=== PATIENT | female | born 1985 | race Caucasian/White ===

== ENCOUNTER 2017-12-06 16:15 | Inpatient (IN) | payer OTHER ==
[~2017-12-06] VITALS: Ht 162.6 cm; Wt 81.6 kg
[2017-12-11] MEDS ORDERED: FAMOTIDINE(*) 20MG/50ML PREMIX 50 ML IVPB PRN (19:42)
[2017-12-11] MEDS ORDERED: LIDOCAINE/SOD BICARB 8.4% SYR SC PRN (19:45)
[2017-12-11] MEDS ORDERED: TERBUTALINE SULF 1 MG/ML VIAL SUBQ PRN (19:45)
[2017-12-11] MEDS ORDERED: METOCLOPRAMIDE 10 MG/2 ML SDV IVP PRN (19:45)
[2017-12-11] MEDS ORDERED: LIDOCAINE 1% LOCAL 300 MG/30ML INJ PRN (19:45)
[2017-12-11] MEDS ORDERED: fentaNYL CITR 100 MCG/2 ML AMP IVP PRN (19:45)
[2017-12-11] MEDS ORDERED: FLUSH 10 ML SYR IVP PRN (19:45)
[2017-12-11 20:00] VITALS: BP 122/63; Ht 162.6 cm; Wt 81.6 kg
[2017-12-11] MEDS ORDERED: CALC500T6 PO (20:08)
[2017-12-11] MEDS ORDERED: PREN-127 PO (20:08)
[2017-12-11] MEDS ORDERED: GLUC-198 PO (20:08)
[2017-12-11] MEDS ORDERED: OMEG-11 PO (20:08)
[2017-12-11 20:41] LABS: PLATELET COUNT, AUTOMATED 136 K/uL (150-450)
[2017-12-11] MEDS ORDERED: DINOPROSTONE 10 MG INSERT PV ONE ×2 (20:45→20:46)
[2017-12-11] MEDS: LR(*) 1000 ML BAG 1,000 ML IV PRN (20:49)
[2017-12-11] MEDS ORDERED: CALCIUM CARBONATE 500 MG CHEW PO PRN (21:00)
[2017-12-11] MEDS ORDERED: ONDANSETRON 4 MG/2 ML VIAL IVP PRN (21:00)
[2017-12-11] MEDS ORDERED: BUPIVACAINE 0.25% MPF INJ EPI PRN (21:35)
[2017-12-11] MEDS ORDERED: LIDO/EPI 2% MPF 1:200,000 20ML EPI PRN (21:35)
[2017-12-11] MEDS ORDERED: BUPIVACAINE 0.5% INJ 30ML VIAL EPI PRN (21:35)
[2017-12-11] MEDS ORDERED: fentaNYL CITR 100 MCG/2 ML AMP IT PRN (21:35)
[2017-12-11] MEDS ORDERED: FENTANYL/ROPIVACAINE 100 ML BAG EPI PRN (21:35)
[2017-12-11] MEDS ORDERED: LIDOCAINE/PF 2% 200MG/10ML AMP 200 MG/10 ML AMPUL EPI PRN (21:35)
[2017-12-11] MEDS ORDERED: ACETAMINOPHEN 500 MG TAB PO PRN (21:40)
[2017-12-12] MEDS ORDERED: EPIDURAL KEYS XX PRN
[2017-12-12] MEDS: LR(*) 1000 ML BAG 1,000 ML IV PRN ×3 (13:00→22:55)
[2017-12-12] MEDS: OXYTOCIN 30 UNIT/D5LR 500 ML 500 ML IV PRN (13:00)
--- NOTE | 2017-12-12 13:08 | Labor Progress Note ---
Labor Subjective Progress Notes Subjective has not developed much pain yet although contractions increasing. Epidural catheter placed to be dosed as needed for pain. Feeling Movement?: Yes Vaginal Discharge/Fluid: Bloody Show Labor Pain: Mild Labor Objective Vital Signs Vital Signs Date Time Temp Pulse Resp B/P (MAP) Pulse Ox O2 Delivery O2 Flow Rate FiO2 12/11/17 20:00 98.5 68 18 122/63 (82) 94 Room Air Vaginal Discharge/Fluid?: Bloody Show, Clear Fluid (amniotomy) Cervical Dialation: 3.5 Cervical Effacement (%): 75 Cervical Consistency: Soft Presentation: Vertex Uterine Contractions(Q min): 3 Uterine Contraction Strength: Moderate Fetus Heart Tone Variabilty: Moderate FHT Accelerations: Present, 15X15 FHT Category: I General Exam Abdomen: Soft, Non-Tender, Non-Distended Psychological: Alert & Oriented X3, Appropriate Mood & Affect Other Result Diagram: 12/11/172028 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 Expecting as moves into active phase of labor. JOHNATHON CONSTANTINO MD Dec 12, 2017 13:08
--- NOTE | 2017-12-12 13:13 | History & Physical ---
History of Present Illness Age of Patient: 32 : 1 Para or TPAL: 0 EDC per LMP: Dec 06, 2017 Estimated Gestational Age: 40 Chief Complaint IOL History of Present Illness Presented for scheduled and elective IOL at term, post dates. No problems currently. History of LEEP but no significant scarring detected. Past Medical, Surgical, Family and Obstetric Histories reviewed. Please see ACOG chart. History Allergies: Coded Allergies: No Known Drug Allergies (Unverified , 12/11/17) Med Rec Home Meds Reported Medications Calcium Carbonate (CALCIUM) 500 Mg Tablet, 500 MG PO 12/11/17 Glucosa Garcia 2KCL/Chondroitin Garcia (GLUCOSAMINE & CHONDROITIN CAP) 1 Each Capsule, 1 EACH PO, CAPSULE 12/11/17 [place]-3 Fatty Acids/Fish Oil (FISH OIL 1,000 MG CAPSULE) 1 Each Capsule, 1 EACH PO, CAPSULE 12/11/17 Vits W-Ca,Fe,Fa(<1MG) ( VITAMINS) 1 Each Tablet, 1 EACH PO DAILY, TAB 12/11/17 Review of Systems All Systems Reviewed/Normal: Yes, Except as Noted Exam General Exam Vital Signs Vital Signs Date Time Temp Pulse Resp B/P (MAP) Pulse Ox O2 Delivery O2 Flow Rate FiO2 12/11/17 20:00 98.5 68 18 122/63 (82) 94 Room Air General Apperance: Alert/Awake/No Acute Distress Neuro: No Gross deficits Cardiovascular: Regular Rate and Rhythm Respiratory: No Respiratory Distress Abdomen: Soft, Non-Tender, Non-Distended, Gravid - Non-Tender Integumentary: Skin Intact without Lesions or Rash Psychological: Alert & Oriented X3, Appropriate Mood & Affect Cervical Dialation: 2 Cervical Effacement (%): 75 Cervical Consistency: Firm Station: -2 Presentation: Vertex Fetus Heart Tone Variabilty: Moderate FHT Accelerations: 15X15 FHT Category: I Medical Decision Making Data Points Result Diagram: 12/11/172028 VTE Prophylasis: Adult Deep Vein Thrombosis/Pulmonary: No Pharmacological Contraindicati: Pt at Low Risk for VTE Mechanical Contraindications: Pt at Low Risk for VTE 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 AROM done with clear fluid. Expecting her to move into active labor. JOHNATHON CONSTANTINO MD Dec 12, 2017 13:13
--- NOTE | 2017-12-12 18:55 | Labor Progress Note ---
Labor Subjective Progress Notes Subjective Comfortable with epidural, pa catheter in place. Pitocin has been adjusted to keep a regular labor pattern and is currently at 20 mu/min. Vaginal Discharge/Fluid: Bloody Show Labor Pain: Comfortable (epidural) Labor Objective Vital Signs Vital Signs Date Time Temp Pulse Resp B/P (MAP) Pulse Ox O2 Delivery O2 Flow Rate FiO2 12/11/17 20:00 98.5 68 18 122/63 (82) 94 Room Air Vaginal Discharge/Fluid?: Bloody Show Cervical Dialation: 4 Cervical Effacement (%): 90 Cervical Consistency: Soft Cervical Position: Anterior Station: -1 Presentation: Vertex Uterine Contractions(Q min): 2.5 Uterine Contraction Strength: Strong Fetus Heart Tone Variabilty: Moderate FHT Accelerations: 15X15 FHT Decelerations: Early FHT Category: I General Exam General Appearance: Alert/Awake/No Acute Distress Psychological: Alert & Oriented X3, Appropriate Mood & Affect Other Result Diagram: 12/11/172028 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 Her cervix feels like it has changed albeit slowly. Recommended more time to get to active phase. Reviewed briefly reasons for ar rest of progress or descent. JOHNATHON CONSTANTINO MD Dec 12, 2017 18:55
[2017-12-12] MEDS ORDERED: DLR(*) 1000 ML BAG 1,000 ML IV ONE (22:53)
[2017-12-12] MEDS: DLR(*) 1000 ML BAG 1,000 ML IV SCH (22:55)
--- NOTE | 2017-12-12 23:48 | Labor Progress Note ---
Labor Subjective Progress Notes Subjective Labor was stalled from 3.5 cm to 5 cm during this afternoon and evening. IUPC placed at 1830 to help document adequate contractions. Adequacy has been present off and on requiring adjustments in Pitocin but overall, we have been over 200 MVUs. Periods of minimal variability with early decelerations noted but excellent response to scalp stimulation. Currently category 1 strip. Vaginal Discharge/Fluid: Bloody Show Labor Pain: Comfortable Labor Objective Vital Signs Vital Signs Date Time Temp Pulse Resp B/P (MAP) Pulse Ox O2 Delivery O2 Flow Rate FiO2 12/11/17 20:00 98.5 68 18 122/63 (82) 94 Room Air Cervical Dialation: 7 Cervical Effacement (%): 100 Cervical Consistency: Soft Cervical Position: Anterior Station: 0 Presentation: Vertex Fetus Heart Tone Variabilty: Moderate FHT Accelerations: 15X15 FHT Decelerations: Early FHT Category: I Other Result Diagram: 12/11/172028 Assessment and Plan Problems: (1) 40 weeks gestation of Assessment & Plan: Continue current course with Pitocin stimulation of labor and planning still. Monitor temperature and contraction frequency. Expecting . JOHNATHON CONSTANTINO MD Dec 12, 2017 23:48
[2017-12-12] MEDS ORDERED: ACETAMINOPHEN 500 MG TAB PO ONE (23:50)
[2017-12-13] MEDS ORDERED: METHYLERGONOVINE MAL 0.2MG/ML ONE (03:16)
[2017-12-13] MEDS ORDERED: CARBOPROST TROMETHAM 250MCG/ML IM ONLY ONE (03:16)
--- NOTE | 2017-12-13 06:09 | OB Delivery Note ---
Delivery Note Vaginal Delivery Type: Spont. Vaginal Delivery Delivery Date: Dec 13, 2017 Delivery Time: 05:47 Estimated Gestational Age(wks): 41.0 Delivery Anesthesia: Epidural Sex: Male Apgars: 1 Minute (8), 5 Minute (9) Repair Needed: Laceration, 1st Degree Estimated Blood Loss: 300 Notes: Presented for Cervidil induction yesterday at 2 cm dilation. Progressed to 3 cm overnight. Very slow progress to 4 cm by 1843 and IUPC placed at that time. Further adjustment to Pitocin made and progress to 5 cm by 9. 7 cm by 8 and completely dilated at 0402. Allowed to labor down for an hour and pushing effectively, brought baby in COLBY position to . [place] maneuver to stabilize the perineum performed and head delivered over first degree laceration. Baby attended to on maternal abdomen. Placenta delivered spontaneous and intact. Uterus massaged firm and Pitocin bolus initiated. Repa ir with 2-0 Chromic. No complications. 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
[2017-12-13] MEDS ORDERED: APAP/HYDROCODONE 325/5 TAB PO PRN (06:10)
[2017-12-13] MEDS ORDERED: INFLUENZA VIRUS VAC 0.5ML SYR IM ONLY ONE (06:10)
[2017-12-13] MEDS ORDERED: HYDROCORTISONE 2.5% CR 30GM TB PR PRN (06:10)
[2017-12-13] MEDS ORDERED: LANOLIN OINT 7 GM TUBE TP PRN (06:10)
[2017-12-13] MEDS ORDERED: MAGNESIUM HYDROXIDE* 30ML UDCP PO PRN (06:10)
[2017-12-13] MEDS ORDERED: MEASLES,MUMP,RUBELLA VAC 0.5ML SUBQ ONE (06:10)
[2017-12-13] MEDS ORDERED: BENZOCAINE 20% 60 ML BTL TP PRN (06:10)
[2017-12-13] MEDS ORDERED: ACETAMINOPHEN 325 MG TAB PO PRN (06:10)
[2017-12-13] MEDS ORDERED: DIPHTH/TETANUS/ACEL. PERTUSSIS IM ONLY ONE (06:10)
[2017-12-13] MEDS ORDERED: GLYCERIN/WITCH HAZEL LEAF 1 PK TP PRN (06:10)
[2017-12-13] MEDS: OXYTOCIN 30 UNIT/D5LR 500 ML 500 ML IV PRN (06:14)
[2017-12-13 07:06] VITALS: BP 111/59
--- NOTE | 2017-12-13 07:19 | Anesthesia OB Pre-Anes Eval ---
History of Present Illness Anesthesia Start Date: Dec 12, 2017 Anesthesia Start Time: 12:45 OB Anesthesia Diagnosis: induction - medical EDC: Dec 06, 2017 : 1 Para: 0 Pain Ratin Result Diagram: 12/11/172028 Height (Inches): 64.00 Weight (Pounds): 180 BMI Calculated: 30.89 Past Medical History Medical History: no pertinent history Surgical History: no surgical history Attended Childbirth Classes?: Yes Hx Anesthesia Reactions: No Hx Family Anesthesia Reaction: No Home Meds Reported Medications Calcium Carbonate (CALCIUM) 500 Mg Tablet, 500 MG PO 12/11/17 Glucosa Garcia 2KCL/Chondroitin Garcia (GLUCOSAMINE & CHONDROITIN CAP) 1 Each Capsule, 1 EACH PO, CAPSULE 12/11/17 [place]-3 Fatty Acids/Fish Oil (FISH OIL 1,000 MG CAPSULE) 1 Each Capsule, 1 EACH PO, CAPSULE 12/11/17 Vits W-Ca,Fe,Fa(<1MG) ( VITAMINS) 1 Each Tablet, 1 EACH PO DAILY, TAB 12/11/17 Allergies: Coded Allergies: No Known Drug Allergies (Unverified , 12/11/17) Anesthesia OB ROS Airway Class: l GI ROS: clear liquids, ice chips Last Solids Date: Dec 12, 2017 Last Solids Time: 09:30 ASA Classification: 2 Assessment and Plan Anesthesia Plan: LEB Anesthesia Stop Day: Dec 13, 2017 Anesthesia Stop Time: 06:00 Epidural Catheter Removal: Removed by: (Catheter will be removed by RN at more convenient time.) ALLY DORADO CRNA Dec 12, 2017 16:28
--- NOTE | 2017-12-13 07:21 | Procedure Note ---
Anesthetic Placement Note Anesthesia Plan: LEB Permit for Anesthesia Signed: Yes Anesthesia Technique: Patient Sitting Anesthesia Prep: Betadine Interspace: L 4-5 Local Anesthetic: 1% Lidocaine, 25 Gauge Needle Amount Local - cc's: 3 Anesthesia Needle: 17g Touhy/Schliff Anesthesia Attempts: 2 Loss of Resistance: Normal Saline Depth of ARTURO (cm): 5.5 Catheter Insertion (cm): 6 Catheter Type: Sanchez - Spring Wound Epidural Dressing: Tegaderm, Tape Anesthesia Tray: Lot Number ([id number]), Expiration Date (2018-11-27), Reference Number ([id number]) Comment: Midline approach, ARTURO to NS, catheter threaded easily 6cm, sterile dressing, taped to back. Plan is to give loading doses later when pt. requests (pain worse). MD will be breaking water soon. Anesthesia Medications: Epidural Test Dose: 1.5 Lido/Epi (1:200,000), Dose - mL (3), Time (1554), Negative (No symptoms IV or IT injection.) Epidural Loading Dose: 0.2% Ropivicaine, With Fentanyl 2mcg/ml, Dose - ml (15ml in 5ml increments.), Time (1557) Epidural Infusion: 0.2% Ropivicaine, With Fentanyl 2mcg/ml, Start Time: (1609) Epidural Pump Setting: Bolus Dose - mL (5), Lockout - Minutes (15), Maintenance Rate - mL/hr (10), Maximum per Hour - mL (25) Complications: None Comment: Before test dose given it was noted that injection hub had dislodged from catheter. Using sterile towels, betadine swabs, sterile scissors, catheter was cut and new sterile hub was attached at sterile end. Dosing via new hub, good analgesia, minimal motor block R=L. 0600 Epidural infusion discontinued f ollowing uneventful vaginal delivery, no problems noted, pt reports good analgesia during delivery. ALLY DORADO CRNA Dec 12, 2017 16:36
[2017-12-13] MEDS: DOCUSATE CALCIUM 240 MG CAP PO SCH ×2 (08:16→20:33)
[2017-12-13] MEDS: IBUPROFEN 800 MG TAB PO SCH ×2 (08:16→16:45)
[2017-12-13] MEDS: DLR(*) 1000 ML BAG 1,000 ML IV SCH (08:42)
[2017-12-13 10:35] VITALS: BP 105/57
[2017-12-13 15:30] VITALS: BP 113/71
--- NOTE | 2017-12-13 17:05 | Anesthesia Post Eval Note ---
Anesthesia Post Eval Note Stabil, afebrile. Pt able to participate in Eval: Yes Cardiovascular Status: Satisfactory Respiratory Status: Satisfactory Pain Managment: Satisfactory PO Nausea/Vomiting: Satisfactory Temperature Management: Satisfactory Mental Status: Satisfactory, Alert, Oriented X3 Post-Op Hydration Status: Satisfactory, Tolerating PO Well, Voiding w/o Difficulty Anesthesia Type: LEB Anesthesia Tolerance: S/P LEB for uneventful vaginal delivery. Ambulatory without symptoms of PDPH, no apparent anesthesia complications. ALLY DORADO PROPERTY CLAIMS MANAGER Dec 13, 2017 17:05
[2017-12-13 20:30] VITALS: BP 106/59
[2017-12-13 23:46] VITALS: BP 110/70
[2017-12-14] MEDS: IBUPROFEN 800 MG TAB PO SCH ×2 (00:57→09:39)
--- NOTE | 2017-12-14 07:37 | OB/GYN Progress Note ---
OB Subjective Progress Notes Subjective Doing well. Little pain and voiding well. Normal lochia and working on breast feeding. Home today. GI: NEG Nausea : Voiding Well OB Objective Physical Exam Vital Signs Date Time Temp Pulse Resp B/P (MAP) Pulse Ox O2 Delivery O2 Flow Rate FiO2 12/13/17 23:46 97.9 53 16 110/70 (83) 97 Room Air Intake and Output 12/14/17 07:00 Intake Total 1800 ml Balance 1800 ml Intake Oral 600 ml IV Total 1200 ml # Voids 1 General Appearance: Alert/Awake/No Acute Distress Neurological: No Gross deficits Cardiovascular: Normal Rhythm & Peripheral Pulses Respiratory: No Respiratory Distress Abdomen: Soft, Non-Tender, Non-Distended, Fundus Firm, Non-Tender Integumentary: Skin Intact without Lesions or Rash Psychological: Alert & Oriented X3, Appropriate Mood & Affect Result Diagram: 12/14/17 0553 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 Home instruction and limitations reviewed. Call with problems. f/u at 6 weeks. JOHNATHON CONSTANTINO MD Dec 14, 2017 07:37
[2017-12-14] MEDS ORDERED: IBUP800T37 PO (07:38)
--- NOTE | 2017-12-14 07:40 | OB/GYN Discharge Summary ---
Discharge Summary Reason for Hosp/Final Diag: (1) 40 weeks gestation of (2) care and examination immediately after delivery Hospital Course & Plan: s/p after long induction with Cervidil and Pitocin, internal monitoring. Normal recovery, breast feeding. Home instruction and limitations reviewed. Call with problems. f/u at 6 weeks. [place] Vital Signs Vital Signs Date Time Temp Pulse Resp B/P (MAP) Pulse Ox O2 Delivery O2 Flow Rate FiO2 12/13/17 23:46 97.9 53 16 110/70 (83) 97 Room Air Weight (Pounds): 180 Result Diagram: 12/14/17 0553 Condition: Improved Discharge: Home, Self Custodial Meds Active Scripts Ibuprofen (IBUPROFEN) 800 Mg Tablet, 800 MG PO Q8H PRN for PAIN, #30 TAB 0 Refills Prov:JOHNATHON CONSTANTINO MD 12/14/17 Reported Medications Calcium Carbonate (CALCIUM) 500 Mg Tablet, 500 MG PO 12/11/17 Glucosa Garcia 2KCL/Chondroitin Garcia (GLUCOSAMINE & CHONDROITIN CAP) 1 Each Capsule, 1 EACH PO, CAPSULE 12/11/17 [place]-3 Fatty Acids/Fish Oil (FISH OIL 1,000 MG CAPSULE) 1 Each Capsule, 1 EACH PO, CAPSULE 12/11/17 Vits W-Ca,Fe,Fa(<1MG) ( VITAMINS) 1 Each Tablet, 1 EACH PO DAILY, TAB 12/11/17 Follow up Referrals: 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 Constantino [phone] Follow up in: 6 wks PP or PO Discharge Diet: As Tolerates Discharge Activity: As Tolerates, No Heavy Lifting x 6 wks, No Heavy Lifting > 10lb, Pelvic Rest Copies to: JOHNATHON CONSTANTINO MD ; JOHNATHON CONSTANTINO MD Dec 14, 2017 07:40
[2017-12-14 08:30] VITALS: BP 112/56
[2017-12-14] MEDS: DOCUSATE CALCIUM 240 MG CAP PO SCH (09:39)
== END 2017-12-14 12:10 | disposition home or self-care (01) | DRG 807 ==
LOC: OB 12-11 19:39
PROVIDERS: ADMIT Obstetrics & Gynecology; ATTEND Obstetrics & Gynecology
PROC: 10907ZC Drainage of Amniotic Fluid, Therapeutic from Products of Conception, Via Natural or Artificial Opening (ICD-10-PCS; 2017-12-12)
PROC: 10H07YZ Insertion of Other Device into Products of Conception, Via Natural or Artificial Opening (ICD-10-PCS; 2017-12-12)
PROC: 4A1H74Z Monitoring of Products of Conception, Cardiac Electrical Activity, Via Natural or Artificial Opening (ICD-10-PCS; 2017-12-12)
PROC: 3E0P7VZ Introduction of Hormone into Female Reproductive, Via Natural or Artificial Opening (ICD-10-PCS; 2017-12-12)
PROC: 10E0XZZ Delivery of Products of Conception, External Approach (ICD-10-PCS; principal; 2017-12-13)
PROC: 0HQ9XZZ Repair Perineum Skin, External Approach (ICD-10-PCS; 2017-12-13)
DX: O48.0 Post-term pregnancy (principal); Z37.0 Single live birth; Z3A.41 41 weeks gestation of pregnancy; O76 Abnormality in fetal heart rate and rhythm complicating labor and delivery
CPT/HCPCS: 36415; 85025; 85027; 86850; 86900; 86901; J2590; J3010; J7120